=== PATIENT | female | born 1970 | race Caucasian/White ===

== ENCOUNTER → 2016-12-02 | Outpatient (CLI) | payer OTHER ==
[~2016-12-02] MED LIST: LSN20 PO; PANT40TA PO
--- NOTE | 2016-12-03 06:21 | SPLIT NIGHT TECHNICIAN REPORT ---
[facility] Split Night Polysomnogram - Piper Installer Report Study date: 12/02/2016 Referring Physician: Sharri JOSEPH M.D. Name: OKSANA BARKER Piper Installer: ERICA Ugalde. Date of : 1970 Height: 46 years, Height 5' 7" Sex: Female Weight: 376 lbs Age: 46 Neck Circum: 17 in BMI: Medications: 58.88 LISINOPRIL 20 MG, PANTOPRAZOLE 40 MG, CITALOPRAM 20 MG Patient History 46 yr-old female here for a baseline/split study. She has a history of snoring and daytime sleepiness. Her [place] scale is 11. The test was started on room air. ETCO2 testing is included in this study. Room 1 Parameters Monitored NPSG: E1-M2, E2-M1, Fp1-M2, Fp2-M1, F3-M2, F4-M2, F4-M1, C3-M2, C4-M2, C4-M1, O1-M2, O2-M2, O2-M1, T3-M2, T4-M1, P3-M2, P4-M1, CHIN1, CHIN2, HR, EKG, Legs, PFLOW, SNOR, FLOW, CFLOW, Tidal Volume, THOR, ABDO, SpO2, PLTH, CPRESS, ETCO2 Wave, ETCO2, pH SLEEP SUMMARY DATA DIAGNOSTIC TREATMENT Lights Out: 10:17:34 PM 2:40:34 AM Lights On: 2:27:34 AM 5:58:34 AM Total Recording Time (TRT): 250.0 min. 198.0 min. Total Sleep Time (TST): 122.5 min. 141.5 min. NREM Time: 122.5 min. 73.5 min. REM Time: 0.0 min. 68.0 min. Sleep Period Time (SPT): 197.5 min. 186.5 min. Sleep Efficiency (SE): 49 % 71 % Sleep Latency: 52.5 min. 11.5 min. Arousal Index: 49.0 13.6 PAP Treatment Levels: 4, 6, 8, 10, 11 * Optimal Pressure(s) SLEEP STAGING DATA DIAGNOSTIC TREATMENT Duration (min) TST % Duration (min) TST % Stage Wake: 127.5 min. -- 56.5 min. -- WASO: 75.0 min. -- 45.0 min. -- NREM: 122.5 min. 100 % 73.5 min. 52 % Stage N1: 50.5 min. 41 % 32.5 min. 23 % Stage N2: 72.0 min. 59 % 33.0 min. 23 % Stage N3: 0.0 min. 0 % 8.0 min. 6 % REM: 0.0 min. 0 % 68.0 min. 48 % POSITIONAL DATA Event Count Index Event Count Index Supine: N/A N/A N/A N/A Supine NREM: N/A N/A N/A N/A Supine REM: N/A N/A N/A N/A Non-Supine: 210 102.9 42 17.0 Non-Supine NREM: 210 102.9 36 28.6 Non-Supine REM: N/A N/A 6 4.4 AROUSAL SUMMARY DATA: Event Count Index Event Count Index Apnea Arousals: 3 7.3 0 0.0 Hypopnea Arousals: 47 23.0 12 5.1 Snore Arousals: 5 2.4 0 0.0 PLM Arousals: 20 9.8 1 0.4 Non-Specific Arousals: 23 11.3 18 7.6 Total Arousals: 100 49.0 32 13.6 MYOCLONUS (PLM) Event Count Index Event Count Index PLM: 75 36.7 1 0.4 PLM AROUSAL: 20 9.8 1 0.4 PLM W/O AROUSAL 75 36.7 0 0.0 PLM W/RESP EVENT 15 0.0 0 0.0 MYOCLONUS (PLM) Event Count Index Event Count Index LM: 5 41.6 13 5.5 LM AROUSAL: 5 2.4 1 0.4 LM W/O AROUSAL LM W/RESP EVENT LM NON SPECIFIC 63 30.9 10 4.2 HEART RATE DATA DIAGNOSTIC TREATMENT Sleep (bpm): 90 89 REM (bpm): N/A 91 NREM (bpm): 85 91 Tachycardia Count: 0 0 Tachycardia Duration: 0.00 0 Bradycardia Count: 0 0 Bradycardia Duration: 0.00 0 DIAGNOSTIC PORTION TREATMENT PORTION RESPIRATORY DATA Event Count Index Event Count Index AHI: -- 102.9 -- 17.0 RDI: -- 102.9 -- 18 Obstructive Apnea: 15 7.3 0 0.0 Central Apnea: 0 0.0 0 0.0 Mixed Apnea: 0 0.0 0 0.0 Hypopnea: 195 95.5 40 17.0 RERA: 0 0.0 2 0.8 Total Apneas: 15 7.3 0 0.0 RESPIRATORY DATA REM NREM SLEEP REM NREM SLEEP Supine Position: Obstructive Apneas: N/A N/A N/A N/A N/A N/A Central Apneas: N/A N/A N/A N/A N/A N/A Mixed Apneas: N/A N/A N/A N/A N/A N/A Hypopneas: N/A N/A N/A N/A N/A N/A RERA N/A N/A N/A N/A N/A N/A Total Supine Events: N/A N/A N/A N/A N/A N/A Supine AHI: N/A N/A N/A N/A N/A N/A Supine RDI: N/A N/A N/A N/A N/A N/A REM NREM SLEEP REM NREM SLEEP Non-Supine Position: Obstructive Apneas: N/A 15 15 0 0 0 Central Apneas: N/A 0 0 0 0 0 Mixed Apneas: N/A 0 0 0 0 0 Hypopneas: N/A 195 195 5 35 40 RERA N/A 0 0 1 1 2 Total Supine Events: N/A 210 210 6 36 42 Supine AHI: N/A 102.9 102.9 4.4 28.6 17.0 Supine RDI: N/A 102.9 102.9 5.3 29.4 17.8 OXYGEN DESTAURATION DATA: Event Count Index Event Count Index REM Desaturations: N/A N/A 6 5.3 NREM Desaturations: 267 130.8 49 40.0 SNORE DATA DIAGNOSTIC TREATMENT Snore Time: 6.6 2:52:04 AM Snore TST%: 6 5 Snore Arousal Count: 5 0 Snore Arousal Index: 2.4 0.0 Desaturation Event Summary: Minimum %SpO2 Event Count Mean/Min/Max Duration(sec.) Desaturation Index % Time In Bed > 90 325 17.2 / 5.0 / 60.0 69.9 64.1 86 - 90 148 16.4 / 4.0 / 41.3 93.4 21.8 81 - 85 35 17.4 / 5.0 / 51.3 68.1 7.1 76 - 80 8 15.2 / 8.8 / 22.5 29.1 3.8 71 - 75 0 N/A 0.0 2.4 66 - 70 0 N/A 0.0 0.8 61 - 65 0 N/A 0.0 0.1 56 - 60 0 N/A 0.0 0.0 51 - 55 0 N/A 0.0 0.0 < 50 0 N/A 0.0 0.0 OXYGEN SATURATION DATA DIAGNOSTIC TREATMENT SpO2 Mean Sleep: 85 % 91 % SpO2 Mean REM: N/A % 91 % SpO2 Mean NREM: 85 % 91 % SpO2 Minimum Sleep: 63 % 79 % SpO2 Minimum REM: N/A % 85 % SpO2 Minimum NREM: 63 % 79 % Time Below 90% (TST): 79.8 35.4 Time Below 88% (TST): 64.8 13.2 Total REM NREM Awake <50% 0.0 min. 0.0 min. 0.0 min. 0.0 min. 51 - 60% 0.0 min. 0.0 min. 0.0 min. 0.0 min. 61 - 70% 3.7 min. 0.0 min. 3.6 min. 0.1 min. 71 - 80% 26.9 min. 0.0 min. 26.2 min. 0.7 min. 81 - 90% 125.9 min. 24.1 min. 86.4 min. 15.4 min. 91 - 100% 279.0 min. 43.9 min. 79.9 min. 155.2 min. Average 90 91 87 93 Minimum SpO2 63 85 63 65 Desaturation Event Index 56.1 5.3 96.7 31.6 # Desat. Events below 89% 313 6 282 25 Time(%) with Saturation below 89% 23.3 1.7 19.9 1.6 Time(min.) with Saturation below 89% 101.3 7.6 86.8 7.0 Recording Piper Installer Comments: Ms. Barker slept in the right, left, and prone positions. No cardiac arrhythmias were noted. Once RUBY was treated, no PLMs noted. No bruxism noted. Snoring was noted and scored as a 2-3 on a scale of 1 through 5. (0=no snoring, 5=snoring loud enough to be heard through a closed door or down the [address]) At 2:30 am, she met specific Split-Night criteria during the diagnostic portion of this study. CPAP was initiated at +4 CMH2O and up-titrated to a level of +11 CMH2O, Cflex 2. An AirFit F10 full face mask size medium from [employer] was used during titration She awoke to use the restroom two times during the night. Ms. Barker stated that she slept poorly but did dream while wearing CPAP. The final report will be interpreted and signed by a sleep physician. The completed physician report will then be placed in the patient medical record. Therapy Event: Therapy (cm H20) 0 4 6 8 10 11 Total Time at Pressure (min.) 250.0 35.2 9.6 18.1 66.3 68.9 TST at Pressure (min.) 122.5 8.7 7.1 7.2 63.6 54.9 # Periods 1 1 1 1 1 1 Sleep Onset (min.) 52.5 11.5 0.0 0.0 0.1 0.0 REM Onset (min.) N/A N/A N/A N/A 25.1 0.0 Sleep Efficiency % 49 24 74 39 96 79 Wakefulness (%) 51.0 75.3 25.9 60.3 3.9 20.3 Wakefulness (min.) 127.5 26.5 2.5 10.9 2.6 14.0 NREM 1 (%) 20.2 24.7 65.6 30.4 3.0 14.5 NREM 1 (min.) 50.5 8.7 6.3 5.5 2.0 10.0 NREM 2 (%) 28.8 0.0 8.5 9.3 24.1 21.1 NREM 2 (min.) 72.0 0.0 0.8 1.7 16.0 14.5 NREM 3 (%) 0.0 0.0 0.0 0.0 6.8 5.1 NREM 3 (min.) 0.0 0.0 0.0 0.0 4.5 3.5 REM (%) 0.0 0.0 0.0 0.0 62.1 39.0 REM (min.) 0.0 0.0 0.0 0.0 41.1 26.9 # Arousals 100 8 7 8 3 6 Arousal Index 49.0 55.3 58.9 66.8 2.8 6.6 # Snore 330 0 5 8 82 217 Snore Index 161.6 0.0 42.0 66.8 77.3 237.3 AHI 102.9 76.0 75.7 83.6 6.6 3.3 AHI Supine N/A N/A N/A N/A N/A N/A AHI Non-Supine 102.9 76.0 75.7 83.6 6.6 3.3 NREM AHI 102.9 76.0 75.7 83.6 5.3 6.4 REM AHI N/A N/A N/A N/A 7.3 0.0 RDI 102.9 76.0 75.7 83.6 7.5 4.4 # Obstructive 15 0 0 0 0 0 # Central Ap 0 0 0 0 0 0 # Mixed 0 0 0 0 0 0 # Hypopneas 195 11 9 10 7 3 RERAS 0 0 0 0 1 1 Total Respiratory Events 210 11 9 10 8 4 Time Below SpO2 89.00% (min.) 72.4 1.1 1.9 1.2 11.9 5.9 Mean NREM SpO2 (%) 85 92 90 91 90 91 Mean REM SpO2 (%) N/A N/A N/A N/A 90 93 Mean Sleep SpO2 (%) 85 92 90 91 90 92 Min NREM SpO2 (%) 63 84 82 81 86 79 Min REM SpO2 (%) N/A N/A N/A N/A 85 90 Position Supine (min.) 0.0 0.0 0.0 0.0 0.0 0.0 Position Non-supine (min.) 122.5 8.7 7.1 7.2 63.6 54.9 LM Index Sleep 78.4 0.0 16.8 25.1 3.8 5.5 LM Index NREM 78.4 0.0 16.8 25.1 2.7 6.4 LM Index REM N/A N/A N/A N/A 4.4 4.5 Mean Heart Rate (bpm) 90 90 89 90 90 88 Min Heart Rate (bpm) 77 86 81 83 80 83
--- NOTE | 2016-12-09 10:56 | POLYSOMNOGRAPH REPORT ---
REFERRING PERSON: Dr. Bill Fraser. V BELT CURER: Marixa Sanz. Ms. Kimball is a 46-year-old female sent for a possible split night sleep study. She has a history of snoring and excessive daytime sleepiness. Her [place] sleepiness scale score on the evening of this study is 11. BMI is a 58.88. Following the technical and digital specifications of the [place] [employer] (AASM) a standard diagnostic polysomnogram was performed monitoring EEG, EOG, EMG (chin and leg deviations), oxygen saturation, body position, digital video, respiratory effort and airflow. The sleep Stage and event scoring was based on the AASM Manual for the Scoring of Sleep and Associated Events 2007 edition. Apneas are defined as a drop in the peak thermal sensor excursion by >90% of baseline for at least 10 seconds. Hypopneas were scored using the 4% oxygen desaturation rule (4A-[employer]ic[employer]) and a decrease in the nasal pressure excursions by >30% of baseline for at least 10 seconds. Respiratory effort-related arousal (RERA's) is defined as a sequence of breaths lasting at least 10 seconds characterized by increasing respiratory effort or flattening of the nasal pressure waveform leading to an arousal from sleep when the sequence of breaths does not meet criteria for an apnea or hypopnea. Apnea Hypopnea index (AHI) is defined as the number of apneas and hypopneas occurring in an hour of sleep. Respiratory disturbance index (RDI) is defined as the number of apneas, hypopneas, and RERA's occurring in an hour of sleep. Ms. Kimball did qualify for a split night sleep study. She was observed for 122.5 minutes of sleep time. During that time, she had 41% N1 sleep and 59% N2 sleep. There were 100 arousals from sleep. 23 of these arousals were nonspecific, 20 were due to periodic limb movements of sleep and 5 were due to snoring. The remaining 50 arousals were due to respiratory events. There were 75 periodic limb movements during observation, 20 of which resulted into arousals. Mean saturation during observation was low at 85% with desaturations during an epoch of non-REM sleep to 63%. There were 15 obstructive events, no central, and no mixed events on this study. There were 195 hypopneas. Pretreatment apnea-hypopnea index was markedly elevated at 102.9. This is consistent with very severe sleep apnea. Therefore, at 02:30 a.m., this patient was started on CPAP therapy. She chose an AirFit F10 full face [facility]. She was titrated from a CPAP pressure of 4 to a CPAP pressure of 11 over the remainder of the night. Increasing pressures were needed to prevent apneas, hypopneas and arousals. She was observed on a pressure of 11 for 54.9 minutes of recorded time. There were 26.9 minutes of non-supine REM sleep on this pressure. AHI and RDI on this pressure were 3.3 and 4.4 respectively. Saturations were less than 89% for 5.9 minutes on this pressure. IMPRESSION AND PLAN: 1. A 46-year-old female with evidence of very severe apnea and nocturnal hypoxemia on a split night sleep study. She does appear to respond well to positive airway pressure therapy. I would recommend that she be started on CPAP at a pressure of 11 at home. A download from her machine can be reviewed in 1 month both to check compliance as well as AHI and further pressure adjustments can occur at that time. 2. Once this patient is on ideal pressure, an overnight oximetry can be performed to ensure her hypoxemia resolves with CPAP alone. 3. Weight loss should be strongly encouraged. AR
== END | disposition home or self-care (01) ==
LOC: C.NEUR 21:00
PROVIDERS: ATTEND Family Medicine
DX: G47.30 Sleep apnea, unspecified (principal); E66.01 Morbid (severe) obesity due to excess calories; Z68.43 Body mass index [BMI] 50.0-59.9, adult; F39 Unspecified mood [affective] disorder; K21.9 Gastro-esophageal reflux disease without esophagitis; I10 Essential (primary) hypertension